=== PATIENT | female | born 1960 | race African-American/Black ===

== ENCOUNTER 2021-10-22 14:22 | Emergency (ER) | payer OTHER ==
[~2021-10-22] VITALS: Ht 162.6 cm; Wt 117.9 kg
== END 2021-10-22 17:27 | disposition home or self-care (01) ==
LOC: FSED 14:30
DX: L89.153 Pressure ulcer of sacral region, stage 3 (principal); L89.612 Pressure ulcer of right heel, stage 2; I10 Essential (primary) hypertension; F32.A Depression, unspecified
CPT/HCPCS: 99284

== ENCOUNTER 2021-10-24 14:07 | Emergency (ER) | payer OTHER ==
[~2021-10-24] VITALS: Ht 162.6 cm; Wt 117.9 kg
[2021-10-24] MEDS ORDERED: OLMESARTAN-HCT1 EAC1 (16:16)
[2021-10-24] MEDS ORDERED: CITALOPRAM HBR20 MG PO (16:16)
== END 2021-10-24 15:58 | disposition home or self-care (01) ==
LOC: FSED 15:27
DX: L89.154 Pressure ulcer of sacral region, stage 4 (principal); I10 Essential (primary) hypertension; F32.A Depression, unspecified
CPT/HCPCS: 99283

== ENCOUNTER 2021-10-26 12:18 | Emergency (ER) | payer OTHER ==
[~2021-10-26] VITALS: Ht 162.6 cm; Wt 117.9 kg
[~2021-10-26 12:18] MED LIST: CITALOPRAM HBR20 MG PO; OLMESARTAN-HCT1 EAC1
== END 2021-10-26 13:57 | disposition home or self-care (01) ==
LOC: FSED 12:26
DX: Z48.01 Encounter for change or removal of surgical wound dressing (principal); L89.153 Pressure ulcer of sacral region, stage 3; I10 Essential (primary) hypertension; F32.A Depression, unspecified
CPT/HCPCS: 99283

== ENCOUNTER 2022-06-26 14:27 | Emergency (ER) | payer OTHER ==
[~2022-06-26] VITALS: Ht 157.5 cm; Wt 124.3 kg
[2022-06-26] MEDS ORDERED: IBUPROFEN 600 MG TAB PO ONE (15:05)
[2022-06-26] MEDS ORDERED: METHOCARBAMOL750 MG PO (15:08)
[2022-06-26] MEDS ORDERED: IBUPROFEN 600 MG TAB ONE (15:53)
== END 2022-06-26 16:32 | disposition home or self-care (01) ==
LOC: FSED 15:04
DX: M25.562 Pain in left knee (principal); M25.561 Pain in right knee; S80.02XA Contusion of left knee, initial encounter; S80.01XA Contusion of right knee, initial encounter; S30.0XXA Contusion of lower back and pelvis, initial encounter; S40.012A Contusion of left shoulder, initial encounter; L89.159 Pressure ulcer of sacral region, unspecified stage; W07.XXXA Fall from chair, initial encounter; Y92.241 Library as the place of occurrence of the external cause; I10 Essential (primary) hypertension; E11.9 Type 2 diabetes mellitus without complications
CPT/HCPCS: 72170; 72220; 99283

== ENCOUNTER 2024-05-27 08:02 | Emergency (ER) | payer BC, OTHER ==
[~2024-05-27] VITALS: Ht 157.5 cm; Wt 136.1 kg
[~2024-05-27 08:02] MED LIST changes: +IBUPROFEN600 MG PO; +METHOCARBAMOL500 MG PO; +METHOCARBAMOL750 MG PO; +ULTRAM 50MG50 MG PO
[2024-05-27 08:10] VITALS: PULSE 73; RESP 18; TEMP 97.8
[2024-05-27] MEDS ORDERED: IOPAMIDOL 370 MG/ML 100 ML INFUS..BTL INJ ONE (08:46)
[2024-05-27 10:39] VITALS: BP 160/79; PULSE 68; RESP 18; O2SAT 98
== END 2024-05-27 10:00 | disposition home or self-care (01) ==
LOC: FSED 08:08
DX: R10.12 Left upper quadrant pain (principal); I10 Essential (primary) hypertension; E11.65 Type 2 diabetes mellitus with hyperglycemia; F32.A Depression, unspecified
CPT/HCPCS: 74160; 80053; 85025; 99284; Q9967